=== PATIENT | female | born 1995 | race American Indian/Alaskan Native ===

== ENCOUNTER 2020-03-09 10:32 | Emergency (ER) | payer SELFPAY ==
[2020-03-09 11:05] VITALS: BP 137/63
--- NOTE | 2020-03-09 11:18 | Event Note ---
ED Screening Note Date of service: 03/09/20 Time: 11:13 ED Screening Note: The patient was evaluated in the emergency department for symptoms described in the history of present illness. He/she was evaluated in the context of the global COVID-19 pandemic, which necessitated consideration that the patient might be at risk for infection with the virus that causes COVID-19. Institutional protocols and algorithms that pertain to the evaluation of patients at risk for COVID-19 are in a state of rapid change based on information released by regulatory bodies including the CDC and federal and state organizations. These policies and algorithms were followed during the patient's care in the emergency department. Please note that these policies, procedures and recommendations changed on a rapid basis. 24-year-old -[place] female presents to the emergency room for 4-day history of acute lower abdominal pain that starts off sharp but then crampy that is also intermittent. Patient admits to nausea and vomiting. Last menstrual period was 02/16/2020. She denies any urinary signs or symptoms. Denies any vaginal discharge. Denies any fever chills. Reports that is at the lower abdomen area. She is 0. This initial assessment/diagnostic orders/clinical plan/treatment(s) is/are subject to change based on patients health status, clinical progression and re- assessment by fellow clinical providers in the ED. Further treatment and workup at subsequent clinical providers discretion. Patient/guardian urged not to elope from the ED as their condition may be serious if not clinically assessed and managed. Initial orders include:
[2020-03-09 11:52] LABS: HCG Qualitative,Urine Positive (Negative)
[2020-03-09 12:12] LABS: Basophils # (Auto) 0.1 K/mm3 (0.0-0.1); Basophils % (Auto) 0.9 % (0.0-1.8); Eosinophils # (Auto) 0.1 K/mm3 (0.0-0.4); Eosinophils % (Auto) 0.9 % (0.0-4.3); Hematocrit 31.9 % (30.3-42.9); Hemoglobin 10.5 gm/dl (10.1-14.3); Lymphocytes # (Auto) 2.8 K/mm3 (1.2-5.4); Lymphocytes % (Auto) 29.9 % (13.4-35.0); Mean Corpuscular HGB Conc 33 % (30-34); Mean Corpuscular Volume 82 fl (79-97); Monocytes # (Auto) 0.5 K/mm3 (0.0-0.8); Monocytes % (Auto) 5.3 % (0.0-7.3); Platelet Count 273 K/mm3 (140-440); Red Cell Distribution Width 17.2 % (13.2-15.2)
[2020-03-09 12:32] LABS: Alanine Aminotransferase 9 units/L (7-56); Albumin 3.7 g/dL (3.9-5); Blood Urea Nitrogen 3 mg/dL (7-17); Calcium 8.8 mg/dL (8.4-10.2); Hemolysis Index 2
[2020-03-09 12:37] LABS: BUN/Creatinine Ratio 5
[2020-03-09 13:23] LABS: Bilirubin,Urine NEG (Negative); Blood,Urine NEG (Negative); Color,Urine Yellow (Yellow); Mucus,Urine 1+ /HPF; Protein,Urine <15 mg/dL mg/dL (Negative); Urobilinogen,Urine < 2.0 mg/dL (<2.0)
--- NOTE | 2020-03-09 14:16 | Ultrasound Report ---
ULTRASOUND OBSTETRIC REASON FOR EXAM: + preg with pelvic pain TECHNIQUE: Transabdominal and transvaginal ultrasound was performed to evaluate a first trimester pre gnancy. COMPARISON: None available. FINDINGS: FINDINGS: The pole, yolk sac, and gestational sac are normal in appearance. [place]-rump length: 8 mm. This corresponds with a gestational age of 6 weeks 5 days. heart rate: 112 -118 bpm Perigestational hemorrhage: No evidence of perigestational hemorrhage on the provided images. MATERNAL FINDINGS: Uterus is otherwise unremarkable. The right ovary measures 4.4 x 2.4 x 2.9 cm and demonstrates a 2.7 cm corpus luteum. No suspicious ad nexal mass. The left ovary measures 3.2 x 2.8 x 1.7 cm and demonstrates a normal sonographic appearance. Cul-de-sac: There is no free fluid. IMPRESSION: 1. Viable intrauterine . Gestational age is 6 weeks 5 days by ultrasound, consistent with th e patient's LMP. Recommend clinical screening and ultrasound follow-up in the second trimester to scr een for anomalies. 2. heart rate is at the lower limits of normal, measuring 112-118 bpm. Continued follow-up is r ecommended. Signer Name: George Barnhart MD Signed: 03/09/2020 2:12 PM Workstation Name: [id number]
--- NOTE | 2020-03-09 14:25 | Emergency Department Report ---
ED Female HPI - General Chief complaint: Abdominal Pain Stated complaint: VOMIT/HEADACHE/STOMACH PAIN Source: patient Mode of arrival: Ambulatory Limitations: No Limitations - History of Present Illness Initial comments: 24-year-old -[place] female presents to the emergency room for 4-day history of acute lower abdominal pain that starts off sharp but then crampy that is also intermittent. Patient admits to nausea and vomiting. Last menstrual period was 02/16/2020. She denies any urinary signs or symptoms. Denies any vaginal discharge. Denies any fever chills. Reports that is at the lower abdomen area. She is 0. Onset/Timin -: days(s) Location: suprapubic Severity scale (0 -10): 6 Quality: cramping, sharp Consistency: intermittent Improves with: none Worsens with: none Are you Now?: No Last Menstrual Period: 03/18/20 EDC: 12/23/20 Associated Symptoms: nausea/vomiting - Related Data Previous Rx's Medication Instructions Recorded Last Taken Type Nitrofurantoin [place]/M-Cryst 100 mg PO Q12HR 7 Days #14 capsule 03/09/20 Unknown Rx [Macrobid CAP] Vit-Fe Fumar-FA [ 1 tab PO QDAY #90 tablet 03/09/20 Unknown Rx Vitamin] Allergies Allergy/AdvReac Type Severity Reaction Status Date / Time No Known Allergies Allergy Unverified 03/09/20 11:05 ED Review of Systems ROS: Stated complaint: VOMIT/HEADACHE/STOMACH PAIN Other details as noted in HPI Comment: All other systems reviewed and negative ED Past Medical Hx - Past Medical History Previous Medical History?: No - Surgical History Past Surgical History?: No - Medications Home Medications: Home Medications Medication Instructions Recorded Confirmed Last Taken Type Nitrofurantoin [place]/M-Cryst 100 mg PO Q12HR 7 Days #14 capsule 03/09/20 Unknown Rx [Macrobid CAP] Vit-Fe Fumar-FA [ 1 tab PO QDAY #90 tablet 03/09/20 Unknown Rx Vitamin] ED Physical Exam - General Limitations: No Limitations General appearance: alert, in no apparent distress - Head Head exam: Present: atraumatic, normocephalic - Eye Eye exam: Present: normal appearance - ENT ENT exam: Present: mucous membranes moist - Neck Neck exam: Present: normal inspection, full ROM - Respiratory Respiratory exam: Absent: accessory muscle use - Cardiovascular Cardiovascular Exam: Present: regular rate, normal rhythm. Absent: systolic murmur, diastolic murmur, rubs, gallop - GI/Abdominal GI/Abdominal exam: Present: soft, tenderness, normal bowel sounds. Absent: distended - Back Exam Back exam: Present: normal inspection - Neurological Exam Neurological exam: Present: alert, oriented X3 - Psychiatric Psychiatric exam: Present: normal affect, normal mood - Skin Skin exam: Present: warm, dry, intact, normal color. Absent: rash ED Course Vital Signs 03/09/20 11:02 Temperature 98.1 F Pulse Rate 75 Respiratory 18 Rate Blood Pressure 137/63 O2 Sat by Pulse 100 Oximetry ED Medical Decision Making - Lab Data Result diagrams: 03/09/20 11:58 03/09/20 11:58 - Radiology Data Radiology results: report reviewed Ordering Physician: NEIL MATTA Date of Service: 03/09/20 Procedure(s): US OB transvaginal Accession Number(s): [id number] cc: NEIL MATTA ULTRASOUND OBSTETRIC REASON FOR EXAM: + preg with pelvic pain TECHNIQUE: Transabdominal and transvaginal ultrasound was performed to evaluate a first trimester . COMPARISON: None available. FINDINGS: FINDINGS: The pole, yolk sac, and gestational sac are normal in appearance. [place]-rump length: 8 mm. This corresponds with a gestational age of 6 weeks 5 days. heart rate: 112 -118 bpm Perigestational hemorrhage: No evidence of perigestational hemorrhage on the provided images. MATERNAL FINDINGS: Uterus is otherwise unremarkable. The right ovary measures 4.4 x 2.4 x 2.9 cm and demonstrates a 2.7 cm corpus luteum. No suspicious adnexal mass. The left ovary measures 3.2 x 2.8 x 1.7 cm and demonstrates a normal sonographic appearance. Cul-de-sac: There is no free fluid. IMPRESSION: 1. Viable intrauterine . Gestational age is 6 weeks 5 days by ultrasound, consistent with the patient's LMP. Recommend clinical screening and ultrasound follow-up in the second trimester to screen for anomalies. 2. heart rate is at the lower limits of normal, measuring 112-118 bpm. Continued follow-up is recommended. Signer Name: Tanja Augustine MD Signed: 03/09/2020 2:12 PM Workstation Name: [email or web address] Transcribed By: YSABEL Dictated By: TANJA AUGUSTINE MD Electronically Authenticated By: TANJA AUGUSTINE MD Signed Date/Time: 03/09/20 1412 DD/ 1408 TD/TT: - Medical Decision Making 24-year-old -[place] female presents to the emergency room for 4-day history of acute lower abdominal pain that starts off sharp but then crampy that is also intermittent. Patient admits to nausea and vomiting. Last menstrual period was 02/16/2020. She denies any urinary signs or symptoms. Denies any vaginal discharge. Denies any fever chills. Reports that is at the lower abdomen area. She is 0. Patient eloped before discuss of her labs and studies. Critical care attestation.: If time is entered above; I have spent that time in minutes in the direct care of this critically ill patient, excluding procedure time. ED Disposition Clinical Impression: , UTI (urinary tract infection) during Disposition: DC-01 TO HOME OR SELFCARE Is pt being admited?: No Does the pt Need Aspirin: No Condition: Undetermined Instructions: and Urinary Tract Infection, Abdominal Pain (ED) Prescriptions: Nitrofurantoin [place]/M-Cryst [Macrobid CAP] 100 mg PO Q12HR 7 Days #14 capsule Vit-Fe Fumar-FA [ Vitamin] 1 tab PO QDAY #90 tablet Referrals: [facility] [Provider Group] - 3-5 Days [facility] [Provider Group] - 3-5 Days [facility] [Provider Group] - 3-5 Days
== END 2020-03-09 17:35 | disposition home or self-care (01) ==
LOC: ED 10:32
DX: O23.41 Unspecified infection of urinary tract in pregnancy, first trimester (principal); Z3A.01 Less than 8 weeks gestation of pregnancy; Z79.899 Other long term (current) drug therapy
CPT/HCPCS: 36415; 76801; 76817; 80053; 81001; 81025; 84702; 85025; 87086